=== PATIENT | female | born 1985 | race American Indian/Alaskan Native ===

== ENCOUNTER 2018-12-13 18:50 | Emergency (ER) | payer OTHER ==
[2018-12-13 19:31] VITALS: BP 140/88
[2018-12-13] MEDS ORDERED: TYLENOL PO ONE (21:56)
[2018-12-13] MEDS ORDERED: IBUPROFEN PO ONE (21:56)
[2018-12-14 01:26] LABS: HCG Qualitative,Urine Negative (Negative)
[2018-12-14 01:30] LABS: Bacteria,Urine 3+ /HPF (Negative); Bilirubin,Urine NEG (Negative); Blood,Urine NEG (Negative); Color,Urine Yellow (Yellow); Mucus,Urine FEW /HPF; Urobilinogen,Urine < 2.0 mg/dL (<2.0)
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
== END 2018-12-14 03:00 | disposition home or self-care (01) ==
LOC: ED 18:50
DX: S39.012A Strain of muscle, fascia and tendon of lower back, initial encounter (principal); F17.200 Nicotine dependence, unspecified, uncomplicated; Z79.899 Other long term (current) drug therapy; V89.2XXA Person injured in unspecified motor-vehicle accident, traffic, initial encounter; Y93.89 Activity, other specified; Y92.488 Other paved roadways as the place of occurrence of the external cause; Y99.8 Other external cause status
CPT/HCPCS: 72100; 81001; 81025; 99284